=== PATIENT | male | born 1975 | race Caucasian/White ===

== ENCOUNTER 2017-11-13 11:26 | Emergency (ER) | payer OTHER ==
[~2017-11-13] VITALS: Ht 182.9 cm; Wt 124.7 kg
[2017-11-13] MEDS ORDERED: ENALAPRILAT IV INJ 1.25 MG/ML VIAL IV NR (11:30)
[2017-11-13] MEDS ORDERED: METOPROLOL SUCCINATE 50 MG TAB XL PO ONE (11:30)
[2017-11-13 11:49] LABS: BASOPHILS % 0.9 % (0.0-1.0); EOSINOPHILS # (AUTO) 0.2 (0.0-0.4); EOSINOPHILS % 4.3 % (0.0-6.0); HEMATOCRIT 43.8 % (38.2-49.6); HEMOGLOBIN 15.5 g/dL (14.0-18.0); LYMPHOCYTES % 22.1 % (18.0-39.1); MEAN CORPUSCULAR HEMOGLOBIN 30.4 pg (28-32); MEAN CORPUSCULAR HGB CONC 35.4 g/dL (31-35); MEAN CORPUSCULAR VOLUME 85.9 fL (81-99); MONOCYTES # (AUTO) 0.3 (0.2-0.8); MONOCYTES % 7.3 % (4.4-11.3); NEUTROPHILS % 65.2 % (38.7-80.0); PLATELET COUNT 151 x10e3/uL (140-360)
[2017-11-13 12:06] LABS: ALANINE AMINOTRANSFERASE 82 IU/L (0-55); ALBUMIN 3.8 g/dL (3.5-5.0); ALBUMIN/GLOBULIN RATIO 1.2 (0.8-2.0); ALKALINE PHOSPHATASE 73 IU/L (40-150); ANION GAP 12.7 mmol/L (8-16); BLOOD UREA NITROGEN 10 mg/dL (7-26); BUN/CREATININE RATIO 11 (6-25); CALCIUM 9.2 mg/dL (8.4-10.2); CARBON DIOXIDE 24 mmol/L (22-29); CHLORIDE 99 mmol/L (98-107); CREATINE KINASE 103 IU/L (30-200); CREATININE, SERUM 0.94 mg/dL (0.72-1.25); EST GLOMERULAR FILTRATION RATE > 60 ML/MIN (60-); GLUCOSE 180 mg/dL (74-118); POTASSIUM 3.7 mmol/L (3.5-5.1); SODIUM 132 mmol/L (136-145)
--- NOTE | 2017-11-13 12:29 | Diagnostic Imaging Report ---
PROCEDURE: A single AP view of the chest. COMPARISON: None. INDICATIONS: HIGH BLOOD PRESSURE FINDINGS: Lines/tubes: None. Lungs: The lungs are well inflated. There is no evidence of pneumonia or pulmonary edema. A 4 mm high density nodular opacity projecting over the right lung base, likely representing calcified granuloma. Pleura: There is no pleural effusion or pneumothorax. Heart and mediastinum: The heart and the mediastinum are unremarkable. Bones: No acute bony abnormality. IMPRESSION: No acute cardiopulmonary disease. Dictated by: SUMA ESPANA M.D. on 11/13/2017 at 12:35 Electronically approved by: SUMA ESPANA M.D. on 11/13/2017 at 12:35
[2017-11-13] MEDS ORDERED: DILTIAZEM HCL 5 MG/ML 5 ML VIAL IV ONE (12:30)
[2017-11-13 13:13] VITALS: BP 166/103
== END 2017-11-13 13:24 | disposition home or self-care (01) ==
LOC: ER 11:26
DX: R53.1 Weakness (principal); I10 Essential (primary) hypertension; R73.9 Hyperglycemia, unspecified
CPT/HCPCS: 36415; 71045; 80053; 82550; 82553; 83880; 84484; 85025; 93005; 99283

== ENCOUNTER 2021-11-25 19:23 | Emergency (ER) | payer BC ==
[~2021-11-25] VITALS: Ht 182.9 cm; Wt 124.7 kg
[~2021-11-25 19:23] MED LIST: ALDACTONE25 MG PO; AMLODIPINE BESY10 MG PO; AMOX TR-K600 MG/5 M PO; B-1100 MG PO; Collagenase TP; FARXIGA5 MG PO; FUROSEMIDE20 MG PO; LOSARTAN POTASS50 MG PO; METFORMIN HCL500 MG PO; NEPHRO-VITE TABL1 EA PO
== END 2021-11-25 19:57 | disposition home or self-care (01) ==
LOC: ER 19:28
DX: S91.101A Unspecified open wound of right great toe without damage to nail, initial encounter (principal); R50.9 Fever, unspecified; I10 Essential (primary) hypertension; E11.9 Type 2 diabetes mellitus without complications; K76.9 Liver disease, unspecified; Z98.84 Bariatric surgery status
CPT/HCPCS: 99282